=== PATIENT | female | born 1980 | race Caucasian/White ===

== ENCOUNTER 2022-06-28 12:13 | Emergency (ER) | payer BC ==
[2022-06-28] MEDS ORDERED: Ketorolac Tromethamine 30 MG/ML VIAL ONE (14:41)
== END 2022-06-28 16:34 | disposition home or self-care (01) ==
LOC: CSHERS 12:13
DX: S93.401A Sprain of unspecified ligament of right ankle, initial encounter (principal); S93.402A Sprain of unspecified ligament of left ankle, initial encounter; S90.112A Contusion of left great toe without damage to nail, initial encounter; W18.09XA Striking against other object with subsequent fall, initial encounter
CPT/HCPCS: J1885